=== PATIENT | male | born 1980 | race African-American/Black ===

== ENCOUNTER 2019-09-02 13:01 | Emergency (ER) | payer OTHER ==
[2019-09-02 13:06] VITALS: BP 154/112; PULSE 105; RESP 18; TEMP 98
[2019-09-02] MEDS ORDERED: DIPH,PERTUS(ACELL)TETVAC-LF 0.5 ML VIAL IM ONE (13:35)
[2019-09-02] MEDS ORDERED: LIDOCAINE 1% INJ 10MG/ML (20 ML MDV) SQ ONE (13:35)
[2019-09-02] MEDS ORDERED: IBUPROFEN 600 MG TAB PO STA (14:41)
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
== END 2019-09-02 14:51 | disposition home or self-care (01) ==
LOC: EC 13:01 → SUPCPDRO 13:01 → EC 14:51
DX: S01.81XA Laceration without foreign body of other part of head, initial encounter (principal); L25.9 Unspecified contact dermatitis, unspecified cause; Z23 Encounter for immunization; Y04.8XXA Assault by other bodily force, initial encounter; Y92.149 Unspecified place in prison as the place of occurrence of the external cause
CPT/HCPCS: 90715; 99282; 12011; 90471; J2001

== ENCOUNTER 2021-03-28 18:06 | Emergency (ER) | payer BC, OTHER ==
[2021-03-28 18:40] VITALS: TEMP 99.1
[2021-03-28 18:41] VITALS: BP 143/82; PULSE 110; RESP 16
[2021-03-28 19:12] LABS: Appearance,Urine Clear (Clear); Bilirubin,Urine Negative (Negative); Blood,Urine Negative (Negative); Color,Urine Yellow; Glucose,Urine (UA) Negative (Negative); Ketones,Urine Trace (Negative); Leukocyte Esterase,Urine Trace (Negative); Mucus,Urine Rare /hpf; Nitrite,Urine Negative (Negative); Protein,Urine 1+ (Negative); RBC,Urine 1 /hpf (0-5); Specific Gravity,Urine 1.036 (1.001-1.035); WBC,Urine <1 /hpf (0-5)
[2021-03-28] MEDS ORDERED: cefTRIAXone 500 MG VIAL IM STA (20:19)
[2021-03-28] MEDS ORDERED: DOXYCYCLINE 100 MG CAP PO STA (20:19)
[2021-03-28] MEDS ORDERED: metroNIDAZOLE 500 MG TAB PO STA (20:48)
--- NOTE | 2021-03-28 20:55 | ED ---
Male Urogenital HPI - General Chief complaint: Urogenital Stated complaint: Abd.Pain,N/V Source: patient Mode of arrival: ambulatory Limitations: no limitations - History of Present Illness Initial comments: 40-year-old male presents to the emergency department with penile pain and discharge. He is concern for sexually transmitted infections. Patient is in the room with his significant other who has similar symptoms. He denies genital rash. No abdominal pain. Denies fevers. Denies changes in his urination to include dysuria, hematuria or difficulty voiding. Denies any changes in his bowel movements include diarrhea, constipation, melanic stools or hematochezia. No other alleviating, precipitating or modifying factors - Related Data Previous Rx's Medication Instructions Recorded Mupirocin 2% Oint [Bactroban 2% 1 applic TOPICAL Q8HR 5 Days #1 09/02/19 Oint] tube Doxycycline Monohydrate [Monodox] 100 mg PO BID 1 Days #10 cap 03/28/21 Doxycycline Monohydrate [Monodox] 100 mg PO BID 10 Days #20 cap 03/28/21 Allergies Allergy/AdvReac Type Severity Reaction Status Date / Time No Known Allergies Allergy Verified 03/28/21 18:38 Review of Systems ROS Statement: Those systems with pertinent positive or pertinent negative responses have been documented in the HPI. ROS Other: All systems not noted in ROS Statement are negative. Past Medical History Past Medical History: Hypertension History of Any Multi-Drug Resistant Organisms: None Reported Past Surgical History: No Surgical Hx Reported Past Psychological History: Anxiety, Depression Smoking Status: Never smoker Past Alcohol Use History: Daily, Occasional Past Drug Use History: Methamphetamine General Exam Limitations: no limitations Course Vital Signs 03/28/21 18:38 Temperature 99.1 F Pulse Rate 110 H Respiratory 16 Rate Blood Pressure 143/82 O2 Sat by Pulse 98 Oximetry Medical Decision Making - Medical Decision Making Upon arrival patient is placed into room 29. A thorough history and physical was performed. Patient does give a urine sample. Specimen is sent for chlamydia, gonorrhea and Trichomonas. He is requesting treatment. He is given 500 mg of Rocephin IM as well as doxycycline 100 mg. Trichomonas still pending and therefore he is given 2 g of Flagyl. Patient will be discharged home and will be called with any abnormal results. I did request to perform a genital exam however patient refused. He is to follow up with the health clinic for any further STD testing. Patient agreed treatment plan was discharged in stable condition - Lab Data Lab Results 03/28/21 Range/Units 18:48 Urine Color Yellow Urine Appearance Clear (Clear) Urine pH 6.0 (5.0-8.0) Ur Specific [place] 1.036 H (1.001-1.035) Urine Protein 1+ H (Negative) Urine Glucose (UA) Negative (Negative) Urine Ketones Trace H (Negative) Urine Blood Negative (Negative) Urine Nitrite Negative (Negative) Urine Bilirubin Negative (Negative) Urine Urobilinogen 2.0 (<2.0) mg/dL Ur Leukocyte Esterase Trace H (Negative) Urine RBC 1 (0-5) /hpf Urine WBC <1 (0-5) /hpf Urine Mucus Rare H (None) /hpf Disposition Clinical Impression: Penile discharge, STD exposure Disposition: HOME SELF-CARE Condition: Stable Instructions (If sedation given, give patient instructions): Safe Sex (ED) Additional Instructions: You will be called with any abnormal results. Take the medications as prescribed and follow-up with your doctor in 2-4 days. Please abstain from sex until your symptoms are improved and your antibiotics are completed Prescriptions: Doxycycline Monohydrate [Monodox] 100 mg PO BID 1 Days #10 cap Doxycycline Monohydrate [Monodox] 100 mg PO BID 10 Days #20 cap Is patient prescribed a controlled substance at d/c from ED?: No Referrals: Leroy Walton MD [Primary Care Provider] - 1-2 days Time of Disposition: 20:55
[2021-03-29 16:17] LABS: C. trachomatis,PCR Negative (Neg,Equiv); Chlamydia trachomatis Source Urine; N. gonorrhoeae,PCR Negative (Neg,Equiv); Neisseria Source Urine
== END 2021-03-28 21:14 | disposition home or self-care (01) ==
LOC: EC 18:06
DX: R36.9 Urethral discharge, unspecified (principal); Z20.2 Contact with and (suspected) exposure to infections with a predominantly sexual mode of transmission; I10 Essential (primary) hypertension; F41.9 Anxiety disorder, unspecified; F32.A Depression, unspecified
CPT/HCPCS: 99283; 96372; 81001; 87491; 87591; J0696